=== PATIENT | female | born 1950 | race Caucasian/White ===

== ENCOUNTER 2021-09-28 08:36 | Outpatient (RCR) | payer MEDICARE, OTHER, SELFPAY ==
[2021-09-28] MEDS: ACETAMINOPHEN 325 MG TABLET 650 MG PO (09:14)
[2021-09-28] MEDS: diphenhydrAMINE HCl CAP 25 MG CAPSULE PO (09:14)
[2021-09-28] MEDS: FAMOTIDINE 20 MG TABLET PO (09:14)
[2021-09-28 09:17] VITALS: BP 145/77; PULSE 66; TEMP 36.4; O2SAT 100
[2021-09-28 10:44] VITALS: BP 151/69; PULSE 63; O2SAT 99
--- NOTE | 2021-09-28 11:57 | PC.NURSE ---
Patient had no medication list with her and is unsure of her medications.
== END 2021-09-28 16:00 ==
LOC: AMCINF 08:36
PROVIDERS: PCP Physician Assistant Medical; Referring Provider Physician Assistant Medical; Visit Provider Internal Medicine Hematology & Oncology
DX: U07.1 COVID-19 (principal); I10 Essential (primary) hypertension
CPT/HCPCS: A9270; M0247; Q0247

== ENCOUNTER 2023-07-10 08:19 | Outpatient (CLI) | payer MEDICARE, OTHER, SELFPAY ==
--- NOTE | ~2023-07-10 | MR_ITS ---
EXAMINATION: MR cervical spine wo con DATE: 07/10/2023 09:36 INDICATION: Bilateral upper extremity paresthesias. TECHNIQUE: Magnetic resonance imaging (MRI) of the cervical spine was performed without intravenous c ontrast. COMPARISON: None FINDINGS: Bone alignment is normal. Vertebral body heights are normal. There is severely decreased di sc height at C4-C5 and C5-C6. The spinal cord signal intensity is normal. There is a 1.8 cm nodule in left thyroid lobe. The following disc levels are specifically discussed: C2-C3: The disc does not extend beyond the endplate margin. There is no uncovertebral joint osteoarth ritis. There is moderate bilateral facet joint osteoarthritis. There is no neural foraminal stenosis. There is no central canal stenosis. C3-C4: The disc is bulging. There is no uncovertebral joint osteoarthritis. There is mild right and m oderate left facet joint osteoarthritis. There is no neural foraminal stenosis. There is mild central canal stenosis. C4-C5: The disc is bulging. There is severe right and moderate left uncovertebral joint osteoarthriti s. There is mild bilateral facet joint osteoarthritis. There is moderate right and mild left neural f oraminal stenosis. There is mild central canal stenosis. C5-C6: The disc is bulging. There is severe right and moderate left uncovertebral joint osteoarthriti s. There is mild bilateral facet joint osteoarthritis. There is moderate right and mild left neural f oraminal stenosis. There is mild central canal stenosis. C6-C7: There is a central extrusion. There is mild bilateral uncovertebral joint osteoarthritis. Ther e is mild bilateral facet joint osteoarthritis. There is no neural foraminal stenosis. There is mild central canal stenosis. C7-T1: There is a central extrusion. There is no uncovertebral joint osteoarthritis. There is moderat e right and severe left facet joint osteoarthritis. There is mild left neural foraminal stenosis. The re is mild central canal stenosis. IMPRESSION: 1. Severe cervical spondylosis. 2. Left thyroid nodule. Consider thyroid ultrasound for risk stratification. Reviewed, dictated and finalized at location A. ROOM ASSOCIATE
--- NOTE | ~2023-07-10 | MR_ITS ---
EXAMINATION: MR lumbar spine wo con DATE: 07/10/2023 09:36 INDICATION: Radiculopathy, lumbosacral region. Low back pain. Bilateral leg pain. TECHNIQUE: Magnetic resonance imaging (MRI) of the lumbar spine was performed without intravenous con trast. Sequences included sagittal T2-weighted FSE, sagittal T2-weighted FS FSE, sagittal T1-weighted FSE, and axial T2-weighted FSE. COMPARISON: None FINDINGS: There is 3 degrees dextrocurvature of thoracolumbar spine. There are chronic bilateral L5 p ars defects. There is 7 mm anterolisthesis of L5 on S1. There is mild chronic height loss of L5 verte bral body posteriorly. There is severely decreased disc height at L5-S1. The distal spinal cord signa l intensity is normal. The conus medullaris is at L2. The following disc levels are specifically disc ussed: L1-L2: The disc does not extend beyond the endplate margin. There is mild bilateral facet joint osteo arthritis. There is no neural foraminal stenosis. There is no central canal stenosis. L2-L3: There is mildly bulging. There is mild bilateral facet joint osteoarthritis. There is mild rupa ateral neural foraminal stenosis. There is no central canal stenosis. L3-L4: The disc is bulging. There is mild right and moderate left facet joint osteoarthritis. There i s mild bilateral neural foraminal stenosis. There is no central canal stenosis. L4-L5: The disc does not extend beyond the endplate margin. There is mild bilateral facet joint osteo arthritis. There is no neural foraminal stenosis. There is no central canal stenosis. L5-S1: The disc does not extend beyond the endplate margin. There is mild bilateral facet joint osteo arthritis. There is moderate right and mild left neural foraminal stenosis. There is mild central can al stenosis. IMPRESSION: 1. Chronic bilateral L5 pars defects with grade 1 anterolisthesis of L5 on S1. 2. Severe lower lumbar spondylosis. Reviewed, dictated and finalized at location A. BILITATION DIRECTOR
== END 2023-07-10 08:20 | disposition home or self-care (01) ==
LOC: ANHIMG 08:21
PROVIDERS: PCP Physician Assistant Medical; Visit Provider Anesthesiology Pain Medicine
DX: M43.02 Spondylolysis, cervical region (principal); E04.1 Nontoxic single thyroid nodule; M47.817 Spondylosis without myelopathy or radiculopathy, lumbosacral region; M43.06 Spondylolysis, lumbar region; M54.17 Radiculopathy, lumbosacral region; M47.812 Spondylosis without myelopathy or radiculopathy, cervical region; M48.02 Spinal stenosis, cervical region
CPT/HCPCS: 72141; 72148

== ENCOUNTER 2023-07-27 15:44 | Outpatient (CLI) | payer MEDICARE, OTHER, SELFPAY ==
--- NOTE | ~2023-07-27 | US_ITS ---
US thyroid INDICATION: Nontoxic thyroid nodule TECHNIQUE: Real-time sonographic images of the thyroid gland were obtained. COMPARISON: No prior studies for comparison. FINDINGS: The right thyroid lobe measures 4.5 x 1.7 x 2 cm. The left thyroid lobe measures 5 x 2 x 2 cm. In the right lobe there is an 8 mm slightly hypoechoic mixed solid and cystic mass which is wide r than tall, smoothly marginated without internal echogenic foci, TR 4. In the left lobe there is a h eterogeneous mixed solid and cystic mass which is hypoechoic, wider than tall with smooth margination and no internal echogenic foci measuring 2 x 1.6 x 1.6 cm, TR 4. IMPRESSION: 1. Left thyroid mass measuring 2 cm, TR 4. Ultrasound-guided fine-needle aspiration biopsy recommend ed. Reviewed, dictated and finalized at [facility] L. R FABRICATOR OPERATOR IMPRESSION: 1. Left thyroid mass measuring 2 cm, TR 4. Ultrasound-guided fine-needle aspir ation biopsy recommended.
== END 2023-07-27 15:45 | disposition home or self-care (01) ==
LOC: ANHIMG 15:46
PROVIDERS: PCP Physician Assistant Medical; Visit Provider Physician Assistant Medical
DX: E04.1 Nontoxic single thyroid nodule (principal)
CPT/HCPCS: 76536

== ENCOUNTER 2023-08-02 09:03 | Outpatient (CLI) | payer MEDICARE, OTHER, SELFPAY ==
--- NOTE | 2023-08-02 11:30 | NEURO_ITS ---
Impression: # Complains of tremors with numbness in all extremities. # Normal Nerve Conduction Study. # Normal needle/EMG exam without evidence of myotonia or denervation potentials. # Clinical correlation recommended. Nerve Conduction Studies Anti Sensory Summary Table Stim Site NR Peak (ms) P-T Amp (?V) Site1 Site2 Delta-P (ms) Dist (cm) Richard (m/s) Left Median Anti Sensory (2-3nd Digit) Wrist 3.7 56.0 Wrist 2-3nd Digit 3.7 14.0 38 Wrist 3.9 51.6 Wrist 2-3nd Digit 3.7 14.0 38 Right Median Anti Sensory (2-3nd Digit) Wrist 3.4 27.2 Wrist 2-3nd Digit 3.4 14.0 41 Wrist 3.2 22.7 Wrist 2-3nd Digit 3.4 14.0 41 Left Radial Anti Sensory (Base 1st Digit) Wrist 2.0 29.6 Wrist Base 1st Digit 2.0 0.0 Right Radial Anti Sensory (Base 1st Digit) Wrist 2.4 22.0 Wrist Base 1st Digit 2.4 0.0 Left Sup Fibular Anti Sensory (Ant Lat Mall) 14 cm 3.5 6.3 14 cm Ant Lat Mall 3.5 16.0 46 Right Sup Fibular Anti Sensory (Ant Lat Mall) 14 cm 3.4 5.9 14 cm Ant Lat Mall 3.4 16.0 47 Left Sural Anti Sensory (Lat Mall) Calf 3.3 10.5 Calf Lat Mall 3.3 16.0 48 Right Sural Anti Sensory (Lat Mall) Calf 3.4 12.2 Calf Lat Mall 3.4 16.0 47 Left Ulnar Anti Sensory (5th Digit) Wrist 2.6 47.1 Wrist 5th Digit 2.6 14.0 54 Right Ulnar Anti Sensory (5th Digit) Wrist 2.6 41.1 Wrist 5th Digit 2.6 14.0 54 Motor Summary Table Stim Site NR Onset (ms) O-P Amp (mV) Site1 Site2 Delta-0 (ms) Dist (cm) Richard (m/s) Left Median Motor (Abd Poll Brev) Wrist 3.6 4.6 Elbow Wrist 4.8 28.0 58 Elbow 8.4 4.0 Right Median Motor (Abd Poll Brev) Wrist 3.2 3.0 Elbow Wrist 5.2 28.0 54 Elbow 8.4 2.0 Left Peroneal Motor (Vastus Med) Ankle 4.5 2.3 Popit Ankle 8.4 40.0 48 Popit 12.9 2.1 Right Peroneal Motor (Vastus Med) Ankle 4.1 1.8 Popit Ankle 7.6 37.0 49 Popit 11.7 1.5 Left Tibial Motor (Abd Martin Brev) Ankle 4.8 8.0 Knee Ankle 9.0 41.0 46 Knee 13.8 8.9 Right Tibial Motor (Abd Martin Brev) Ankle 4.7 6.1 Knee Ankle 7.9 38.0 48 Knee 12.6 4.0 Left Ulnar Motor (Abd Dig Minimi) Wrist 2.6 7.2 A Elbow Wrist 5.1 29.0 57 A Elbow 7.7 6.4 Right Ulnar Motor (Abd Dig Minimi) Wrist 3.1 7.1 A Elbow Wrist 5.4 30.0 56 A Elbow 8.5 5.1 F Wave Studies NR F-Lat (ms) L-R F-Lat (ms) Left Median (Mrkrs) (Abd Poll Brev) 28.07 0.00 Right Median (Mrkrs) (Abd Poll Brev) 28.07 0.00 Left Peroneal (Mrkrs) (EDB) 51.48 0.93 Right Peroneal (Mrkrs) (EDB) 52.41 0.93 Left Tibial (Mrkrs) (Abd Hallucis) 52.34 0.16 Right Tibial (Mrkrs) (Abd Hallucis) 52.50 0.16 Left Ulnar (Mrkrs) (Abd Dig Min) 28.56 0.28 Right Ulnar (Mrkrs) (Abd Dig Min) 28.28 0.28 EMG Side Muscle Nerve Root Ins Act Fibs Amp Dur Recrt Comment Right 1stDorInt Ulnar C8-T1 Nml Nml Nml Nml Nml Right Ext Indicis Radial (Post Int) C7-8 Nml Nml Nml Nml Nml Right Ext Digitorum Radial (Post Int) C7-8 Nml Nml Nml Nml Nml Right BrachioRad Radial C5-6 Nml Nml Nml Nml Nml Right PronatorTeres Median C6-7 Nml Nml Nml Nml Nml Right Abd Poll Brev Median C8-T1 Nml Nml Nml Nml Nml Right AntTibialis Dp Br Fibular L4-5 Nml Nml Nml Nml Nml Right Gastroc T
== END 2023-08-02 09:04 | disposition home or self-care (01) ==
LOC: ANHNEURO 09:04
PROVIDERS: PCP Physician Assistant Medical; Visit Provider Anesthesiology Pain Medicine
DX: G62.9 Polyneuropathy, unspecified (principal)
CPT/HCPCS: 95886; 95913

== ENCOUNTER 2024-06-19 10:19 | Outpatient (CLI) | payer MEDICARE, SELFPAY ==
--- NOTE | ~2024-06-19 | XR_ITS ---
XR cervical spine 4-5V Ordering provider: Greyson Joyce MD History: . cervicalgia, cervical spondylosis, limited rom . Comparison: None. FINDINGS: VERTEBRAL BODIES: Normal height and alignment. No visible fracture or subluxation. The dens is intact . Asymmetry around the odontoid is seen most likely positional. Mild Levoscoliosis. DISK SPACES: Narrowing of the disc C4-C5, C5-C6 and C6-C7. Narrowing of the foramina at the level of C5-C6 and C6-C7 PARASPINOUS SOFT TISSUES: No prevertebral soft tissue swelling. IMPRESSION: No acute osseous abnormality cervical spine. Multilevel degenerative disc disease and intervertebral foraminal narrowing. Reviewed, dictated and finalized at location A.
== END 2024-06-19 10:20 | disposition home or self-care (01) ==
PROVIDERS: PCP Physician Assistant Medical; Visit Provider Anesthesiology Pain Medicine
DX: M43.12 Spondylolisthesis, cervical region (principal); M48.02 Spinal stenosis, cervical region; M54.12 Radiculopathy, cervical region; G89.29 Other chronic pain; M50.30 Other cervical disc degeneration, unspecified cervical region
CPT/HCPCS: 72050

== ENCOUNTER 2024-07-03 07:50 | Day surgery (SDC) | payer MEDICARE, SELFPAY ==
[2024-06-27 09:39] VITALS: BMI 7555.5
--- NOTE | ~2024-07-03 | XR_ITS ---
INTRAOPERATIVE FLUOROSCOPY: CLINICAL HISTORY: 73 years old Female; MIDLINE C6-7 INTERLAMINAR EPIDURAL STEROID INJ PROCEDURE COMMENTS: Limited intraoperative fluoroscopy of the cervical spine was performed. CUMULATIVE DOSE: 0.6 mGy FLUOROSCOPY TIME: 9.9 seconds FINDINGS/IMPRESSION: Please refer to operative note for further details. Reviewed, dictated and finalized at location A. H EXAMINER HAND
[2024-07-03 08:40] VITALS: BP 147/85; PULSE 62; RESP 15; TEMP 36.8; O2SAT 97
--- NOTE | 2024-07-03 09:35 | WPDHPUPDATE1 ---
History and Physical Update Update Date/Time: 07/03/24 09:35 History and Physical has been reviewed, including an updated exam of the patient. There are NO changes in the patient's condition. Risks, benefits, and alternatives have been discussed and questions answered. Patient agrees to proceed with procedure.
--- NOTE | 2024-07-03 09:36 | P.OP_ITS ---
Procedure Note - Detailed Date of Procedure 07/03/24 Pre-op Diagnosis Cervical Radiculopathy Post-op Diagnosis Same Procedure Performed Midline Cervical Interlaminar Epidural Steroid Injection at C6-7 under Fluoroscopic Guidance and with Contrast Control. Surgeon Greyson Joyce MD Anesthesia Local Description of Procedure INFORMED CONSENT: Risks, benefits and alternatives to the procedure were discussed in detail with the patient who expressed explicit understanding and consent to proceed. Patient was informed verbally and in written form regarding the risks associated with the procedure including the low risk of serious infection, bleeding/bruising, allergic reaction, nerve or organ injury, paralysis, procedural site pain or discomfort, worsening pain and/or mobility, failure to treat and/or disfigurement. The patient expressed explicit understanding and consent to proceed. All materials required for the procedure were available prior to procedure start. Site and side was marked prior to procedure and confirmed in the presence of the patient. PROCEDURE IN DETAIL: The patient was brought to the procedural suite and placed in the prone position. Patient's head was positioned and stabilized with a ProneView pillow or equivalent. Patient was made comfortable with use of pillows under the chest, hips and ankles. Skin overlying the injection site was prepared broadly with ChloraPrep applicator and draped in a sterile manner. Aseptic technique was employed throughout. The endplates of the vertebral body at the site of interest were aligned in the AP view. Slight caudad tilt and ipsilateral oblique angulation was utilized to optimize visualization of the targeted posterior intervertebral foramen at C6-7. Local anesthesia was established by infiltration with approximately 5 mL of 2% lidocaine via a 1-1/2 inch 27-gauge needle. A 20-gauge 4-inch Tuohy epidural needle was advanced intermittently until appropriate loss of resistance to air was identified via plastic loss of resistance syringe. Lateral view was used to confirm the appropriate positioning of the needle tip within the posterior epidural space. In the AP view, 2.0 mL of Omnipaque 300 contrast medium was injected after negative aspiration for CSF, blood or other bodily fluid, showing appropriate epidural spread of contrast without evidence of intravascular or intrathecal placement. After negative repeat aspiration for CSF, blood or other bodily fluid, A 4 mL solution containing 6 mg of betamethasone in sterile PF Normal Saline was injected after negative repeat aspiration. Appropriate spread of the injectate was confirmed with washout of previously injected contrast. No par asthesias were elicited. Needle was removed completely intact without difficulty. Images were saved and documented in the patient chart. Patient's skin was cleansed and sterile bandage applied. The patient tolerated the procedure well. The patient was transported to the recovery area in stable condition where they were observed for an appropriate amount of time prior to discharge, without evidence of complication. The patient was instructed to avoid excessive activity for the next 48 hours, including overhead work, reaching or extended device/computer usage. Showers only for 48 hours. They were instructed not to drive or operate heavy machinery for 24 hours. They are to monitor for severe headaches, fevers, chills, night sweats, erythema/swelling at the site or any other signs of infection, bleeding/bruising, bowel or bladder changes as well as new pain, weakness or numbness in the upper or lower extremity. Should they notice these changes, they are instructed to call our office immediately or report directly to the nearest Emergency Department if no answer or if after posted office hours. CONTRAST WASTED: 28mL Omnipaque 300. Complications No immediate complications Condition Stable Disposition Same day [facility] Billing Surgery - Charge Forward: Surgery Billing
[2024-07-03 09:50] VITALS: BP 177/88; PULSE 59; RESP 8; O2SAT 96
[2024-07-03 09:55] VITALS: BP 174/89; PULSE 57; RESP 12; O2SAT 96
[2024-07-03] MEDS: BETAMETHASONE SODIUM PHOSPHATE PF INJ 6 MG/ML VIAL INFILTRATE (09:57)
[2024-07-03] MEDS: LIDOCAINE HCL 1% PF INJ 5 ML VIAL 1 ML INFILTRATE (09:58)
[2024-07-03 10:02] VITALS: BP 180/81; PULSE 58; RESP 16; O2SAT 100
== END 2024-07-03 10:15 | disposition home or self-care (01) ==
PROVIDERS: PCP Physician Assistant Medical; Visit Provider Anesthesiology Pain Medicine
PROC: (CPT 62321; principal; 2024-07-03 09:45)
DX: M54.12 Radiculopathy, cervical region (principal)
CPT/HCPCS: 62321; 99199

== ENCOUNTER 2024-07-19 07:43 | Outpatient (CLI) | payer MEDICARE, SELFPAY ==
--- NOTE | ~2024-07-19 | DEXA_ITS ---
Bone Density Report Name: BREDNAN CANO Age: 73 Sex: Female Ethnicity: White Date of : 1950 Indication: postmenopausal; screening for osteoporosis; height loss; Referring Provider: MANUEL FALK Study: Bone densitometry was performed. Exam Date: July 19, 2024 Accession number: [id number] Bone Density: Region BMD T-score Z-score Classification AP Spine(L1-L4) 0.779 -2.4 0.0 Osteopenia Femoral Neck (Left) 0.567 -2.5 -0.4 Osteoporosis Total Hip (Left) 0.735 -1.7 0.1 Osteopenia Femoral Neck (Right) 0.613 -2.1 0.0 Osteopenia Total Hip (Right) 0.708 -1.9 -0.1 Osteopenia Total Hip Mean 0.722 -1.8 0.0 Osteopenia World Health Organization criteria for BMD impression classify patients as: Normal (T-score at or above -1.0), Osteopenia (T-score between -1.0 and -2.5), or Osteoporosis (T-score at or below -2.5). 10-year Fracture Risk: FRAX not reported because: Some T-score for Spine Total or Hip Total or Femoral Neck at or below -2.5 Clinical Information Provided by Patient: Has used the following medications: Vitamin D, Calcium Patient maximum height was 66 Menopause Age: 58 No regular weight bearing exercise Drinks caffeinated beverages Onset of menses at age 10 Number of children 2 Impression: The patient has osteoporosis, based on the Left Femoral Neck T-score. Discussion: INCREASED RISK OF FRACTURE. BONE DENSITY IS UNDESIRABLY LOW AT ONE OR MORE SKELETAL SITES, CONSISTENT WITH POSTMENOPAUSAL OSTEOPOROSIS. This patient's lowest T-score meets the World Health Organization's (WHO) criteria for osteoporosis at one or more sites (T-score -2.5 or below). In untreated patients, the risk of osteoporotic fracture increases approximately two-fold for each 1.0 SD decrease in T-score. Low bone density is not the only risk factor for fracture; also consider factors such as patient's age, frailty or poor health, risk of falling, risk of injury, previous osteoporotic fracture, family history of osteoporosis, cigarette smoking, low body weight, etc. Not everyone with low bone mineral density has osteoporosis; osteomalacia and other metabolic bone disorders should also be considered. Patients who have osteoporosis should be evaluated for specific diseases and conditions (secondary causes) that may cause or contribute to bone loss. The [place] Association of Clinical Endocrinologists (AACE) and National Osteoporosis Foundation (NOF) recommend pharmacologic intervention for all postmenopausal women whose T-score is in this range. The patient should follow a healthful lifestyle (good nutrition with adequate calcium and vitamin D, and appropriate weight-bearing exercise). Follow-Up: Consider a repeat BMD and Vertebral Fracture Assessment (VFA) exam in 2 years or sooner if medically necessary, to reassess this patient's status. Reported by: MARILU on 07/19/2024 8:13:00 AM. Reviewed, dictated and finalized at location A. [facility]ITAL[facility]
== END 2024-07-19 07:44 | disposition home or self-care (01) ==
PROVIDERS: PCP Physician Assistant Medical; Visit Provider Physician Assistant Medical
DX: E28.39 Other primary ovarian failure (principal); M85.89 Other specified disorders of bone density and structure, multiple sites; M81.0 Age-related osteoporosis without current pathological fracture; E21.3 Hyperparathyroidism, unspecified; I10 Essential (primary) hypertension; E04.1 Nontoxic single thyroid nodule; R79.89 Other specified abnormal findings of blood chemistry; Z13.820 Encounter for screening for osteoporosis
CPT/HCPCS: 77080

== ENCOUNTER 2025-04-06 15:03 | Emergency (ER) | payer MEDICARE, SELFPAY ==
--- NOTE | ~2025-04-06 | XR_ITS ---
EXAM: XR foot LT min 3V DATE: 04/06/2025 15:31 HISTORY: dropped ipad on foot on 1st MTP joint area . COMPARISON: None available. FINDINGS: Normal mineralization. No fracture or dislocation. No lytic or blastic lesion. Severe dege nerative change at the first MTP joint. Widening of the first MTP joint and the lateral view. Mild Ac hilles and moderate plantar enthesopathy. Mild scattered degenerative changes in the toes and midfoot . No erosion or periosteal change. Soft tissues within normal limits. IMPRESSION: First MTP joint widening, seen only in the lateral view, may be secondary to degenerative change or traumatic subluxation. Reviewed, dictated and finalized at location K. IMPRESSION: First MTP joint widening, seen only in the lateral view, may be sec ondary to degenerative change or traumatic subluxation.
--- OUTSIDE RECORDS SUMMARY | 2025-04-06 15:06 | XMS_ITS | Encounter Summary ---
Author Organization [facility] Address [facility] [place] [address] Care Team Providers [employer] International Guest Coordinator Name Role Phone Christie Stapleton PA-C Primary Care Provider [phone]- [phone] Encounter Details Date Type Department Care Team (Late st Contact Info) Description 05/07/2024 [place] [employer] [employer] Message Enc [facility] - [facility] [address] [facility], [address] [place] [id number] [place], [facility] Provider Question Social History Tobacco Use Types Packs/Day Years Used Date Smoking Tobacco: Never Smokeless Tobacco: Never Alcohol Use Standard Drinks/Week Comments No 0 (1 standard drink = 0.6 oz pur e alcohol) AUDIT-C Answer Date Recorded Frequency of Alcohol Consumption Never 10/17/2018 Average Number of Drinks Not on file 019 Frequency of Binge Drinking Not on file 09/29 PHQ-2 Answer Date Recorded Patient Health Questionnaire-2 Score 0 04/23/2024 Comments No Sex and Gender Information Value Date Recorded Sex Assigned at Female 09/12/2024 8:00 AM FRAME ALIGNER Legal Sex Female 6:03 PM CDT Gender Identity Female 10/30/2021 3:21 PM FRAME ALIGNER Sexual Orientation Not on file 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 Washburn- Please check with her if she would like to do some physical therapy? The other option is to see a pain specialist as well. Please check with her on both. If she is interested in doing physical therapy, please check where she would like to do it documented in this encounter Plan of Treatment Not on file documented as of this encounter Visit Diagnoses Not on filedocumented in this encounter Additional Health Concerns Assessment Noted Time PHQ-9 Depression Total Score: 0 10/06/19 22 10:18 AM FRAME ALIGNER documented as of this encounter Care Teams International Guest Coordinator Relationship Specialty Start Date End Date Christie Stapleton PA-C PCP - General NURSE PRACTITIONER 12/06/18 documented as of this encounter
--- OUTSIDE RECORDS SUMMARY | 2025-04-06 15:06 | XMS_ITS | Encounter Summary ---
Author Organization [facility] Address [facility] [place] [address] Care Team Providers Care Reservations And Ticketing Agent Name Role Phone Christie Stapleton PA-C Primary Care Provider [phone]- [phone] Encounter Details Date Type Department Care Team (Late st Contact Info) Description 06/12/2021 Therapy Plan [facility] [address] [place], [place] [id number] Christie Stapleton PA-C [facility] [place] [address] Social History Tobacco Use Types Packs/Day Years Used Date Smoking Tobacco: Never Smokeless Tobacco: Never Alcohol Use Standard Drinks/Week Comments No 0 (1 standard drink = 0.6 oz pur e alcohol) AUDIT-C Answer Date Recorded Frequency of Alcohol Consumption Never 10/17/2018 Average Number of Drinks Not on file 019 Frequency of Binge Drinking Not on file 09/29 Comments No Sex and Gender Information Value Date Recorded Sex Assigned at Female 09/12/2024 8:00 AM HITTING COACH Legal Sex Female 6:03 PM CDT Gender Identity Female 10/30/2021 3:21 PM HITTING COACH Sexual Orientation Not on file Occupation Industry Job Start Date Job End Date [place] [employer] Not on file Not on file Not on file COVID-19 Exposure Response Date Recorded In the last month, have you been in contact with someone who was confirmed or suspected to have Coronavirus / COVID-19? No / Unsure 05/29/2021 10:00 AM CDT documented as of this encounter Plan of Treatment Not on file documented as of this encounter Visit Diagnoses Diagnosis Senile osteoporosis- Primary documented in this encounter Care Teams Reservations And Ticketing Agent Relationship Specialty Start Date End Date Christie Stapleton PA-C PCP - General NURSE PRACTITIONER 12/06/18 documented as of this encounter
--- OUTSIDE RECORDS SUMMARY | 2025-04-06 15:06 | XMS_ITS | Clinical Summary ---
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 TEACHER Gender Identity Not on file Sexual Orientation Not on file Obstetrics History Para Term AB IAB SAB Ectopic Multiple Livin g Live Births 2 Date Outcome GA Total Labor Labor/2nd/3rd Weight Sex Type Anes PTL Charlotte A1 A5 Name Clin Plan of Treatment Health Maintenance Due Date Last Done Comments Depression Screening 1950 Fall Risk Assessment 1950 Hepatitis C Screening 1950 DTaP/Tdap/Td Vaccine (1 - Tdap) 1959 Hepatitis B Screening 1966 Zoster Vaccine (1 of 2) 1998 Well Visit 65+ 2013 Pneumococcal vaccine 65+ (2 of 2 - PPSV23) 07/01/2021 07/01/2020 Covid-19 Vaccine (3 - 2023-2 5 season) 2024 11/07/2020, 10/10/2020 Osteoporosis Screening-Bone Density Scan 06/22/2024 06/22/2022 Influenza Vaccine (#1) 2025 06/26/2020 Breast Cancer Screening-Mammogram Discontinued 09/14/2024, 07/05/2023, 06/14/2022, Additional history exists Procedures Procedure Name Priority Date/Time Associated Diagnosis Comments SCREENING MAMMOGRAM BILATERAL W BESS Schedule Routine, Read Routine (OP Routine) 09/14/2024 1:07 PM CRYPTOGRAPHY TEACHER Screening mammogram, encounter for from Last 3 Months or Most Recently Relevant to Health Maintenance Results * Screening Mammogram Bilateral W Bess (09/14/2024 1:07 PM CRYPTOGRAPHY TEACHER) Anatomical Region Laterality Modality Breast Bilateral Mammography Impressions 09/14/2024 1:35 PM CRYPTOGRAPHY TEACHER BI-RADS ATLAS category (overall): 1 - Negative There is no mammographic evidence of malignancy. A 1 year screening mammogram is recommended. The patient has been or will be contacted. We recommend annual screening mammography for women at average risk of breast cancer beginning at age 40, based on guidelines of the [employer] [employer] (ACR Practice Parameter for the Performance of Screening and Diagnostic Mammography) and [place] [employer]. For women with and elevated risk of breast cancer, please refer to the ACR Practice Parameter for specific screening recommendations. The patient will be entered into a reminder system with a target due date of 1 year for her next screening exam. Narrative 09/14/2024 1:35 PM CRYPTOGRAPHY TEACHER Screening Mammogram Bilateral W Bess: 09/14/24 The study was acquired using full field digital technology and interpreted from soft copy. 2D digital mammographic views, as well as 3D digital tomosynthesis were performed in the CC and MLO projections. This study was resulted using Computer-Aided Detection (CAD). CLINICAL: Screening mammogram, encounter for. No relevant medical history has been documented for this patient. No known family history of breast cancer. COMPARISONS: 07/05/2023 Screening Mammogram Bilateral W Bess 06/14/2022 Screening Mammogram Bilateral W Bess 03/24/2021 Screening Mammogram Bilateral W Bess BREAST TISSUE: There are scattered areas of fibroglandular density. FINDINGS: No suspicious masses, suspicious calcifications, or other suspicious findings are seen within either breast. There has been no suspicious change. us Self Screening Mammogram IMG MAMMO PROCEDURES Fi nal Result from Last 3 Months or Most Recently Relevant to Health Maintenance Insurance [facility] [address] Care Teams Stick Feeder Relationship Specialty Start Date End Date Christie Stapleton PA [facility] [place] [address] PCP - General Family Practice 06/14/22
--- OUTSIDE RECORDS SUMMARY | 2025-04-06 15:06 | XMS_ITS | Encounter Summary ---
Author Organization [facility] Address [address] [place] [address] Care Team Providers Care Cytologist Name Role Phone Christie Stapleton Primary Care Provider [phone] Encounter Details Date Type Department Care Team (Late st Contact Info) Description 12/13/2024 Lab Requisition [facility] - Derm[facility] Lab [address] [place] [address] Janelle Bojorquez DO [address] [facility] [address] [place] [address] Social History Tobacco Use Types Packs/Day Years Used Date Smoking Tobacco: Never Smokeless Tobacco: Never Alcohol Use Standard Drinks/Week Comments Not Currently 0 (1 standard drink = 0.6 oz pur e alcohol) Comments Unknown Sex and Gender Information Value Date Recorded Sex Assigned at Not on file Legal Sex Female 9:16 AM CDT Gender Identity Female 05/28/2024 9:16 AM CDT Sexual Orientation Not on file documented as of this encounter Plan of Treatment Upcoming Encounters Date Type Department Care Team (Late st Contact Info) Description 04/25/2025 1:40 PM CDT Office Visit [facility] - Endocrinology [address] [place] [address] Tawnya Mclean MD [address] [place] [address] [address] [place] [address] 07/29/2025 1:00 PM MILL MANAGER Office Visit [facility] - Endocrinology [address] [place] [address], [place] [address] Yousuf Irwin MD [address] [place] [address] [address] [address] documented as of this encounter Procedures Procedure Name Priority Date/Time Associated Diagnosis Comments DERMATOPATHOLOGY Routine 12/12/2024 12:0 0 AM CDT documented in this encounter Results * DERMATOPATHOLOGY (12/12/2024 12:00 AM CDT) Case Report Dermatopathology Report Case: [id number] Authorizing Provider: Janelle Bojorquez DO Collected: 12/12/2024 12:00 AM Ordering Location: [facility] Physician [facility] - Received: 12/14/2024 06:27 AM DermPath Lab Pathologist: Melanie Collins MD Specimen: Skin, left upper back 5:27 PM CDT DERMATOPATHOLOGY LABORATORY Final Diagnosis Specimen A. SKIN, left upper back: JUNCTIONAL MELANOCYTIC PROLIFERATION; PRESENT AT MARGIN (D48.5) (see microscopic description and comment) 5:27 PM CDT DERMATOPATHOLOGY LABORATORY at 1725 CDT Clinical History LENTIGO R/O ATYPIA 5:27 PM CDT DERMATOPATHOLOGY LABORATORY Gross Description Specimen A: Received is one formalin filled container labeled with the patient's name and designated left upper back. The specimen consists of a shave biopsy measuring 8x8x1 mm. Jar 0. 5:27 PM CDT DERMATOPATHOLOGY LABORATORY Microscopic Description Specimen A. SKIN, left upper back: Sections show a junctional melanocytic proliferation. There is a lentiginous proliferation of melanocytes between irregular nests. Scattered melanocytes show evidence of upward migration within the epidermis. The melanocytes are highlighted by MART-1/Melan-A. PRAME is negative within the melanocytes. This lesion is present at the margin of the specimen. COMMENT: Because this lesion is present at the margin of the specimen, symmetry and circumscription cannot be evaluated. Therefore, a complete but conservative re-excision is recommended to evaluate this lesion in its entirety. This case was shared with Dr. Noris Tejada who agrees. 5 5:27 PM CDT DERMATOPATHOLOGY LABORATORY Disclaimer An external and internal positive and negative controls are appropriate for the histochemical, immunohistochemical and immunofluorescence stain(s) in this case (if any), except where stated explicitly. The performance characteristics of the stain(s) cited in this report were developed and its performance characteristic determined by the Dermatopathology Laboratory at [facility], directed by Dr. Joanie Merida. These tests need not be, and therefore are not, approved by the [place] Food and Drug Administration. The tests are used for clinical purposes. Billing Codes Specimen Charges Stain Charges 05041 1 [id number] [id number] 1 1 5 5:27 PM CDT DERMATOPATHOLOGY LABORATORY Embedded Images 5 5:27 PM CDT DERMATOPATHOLOGY LABORATORY Pathology/Cytolog y TISSUE SPECIMEN FROM SKIN / Unknown 12/12/2024 12/14/2024 6:27 AM CDT Janelle Bojorquez DO LAB - PATHOLOGY/CYTOLOGY ORDERABLES Final Result DERMATOPATHOLOGY LABORATORY [facility] - Department of Dermatology [address], [address] [phone] documented in this encounter Visit Diagnoses Not on filedocumented in this encounter Care Teams Cytologist Relationship Specialty Start Date End Date Christie Stapleton PA [address] [place] [address] PCP - General Physician Sueding Machine Tender 10/25/24 documented as of this encounter
--- OUTSIDE RECORDS SUMMARY | 2025-04-06 15:06 | XMS_ITS | Encounter Summary ---
Author Organization [facility] Address [facility] [place] [address] Care Team Providers Care Resolution Agent Name Role Phone Christie Stapleton PA-C Primary Care Provider [phone] Encounter Details Date Type Department Care Team (Late st Contact Info) Description 01/13/[address] [facility] One Day Services [address] [place], [place] [id number] [place] [id number] [address] Social History Tobacco Use Types Packs/Day Years [...] Date Recorded Patient Health Questionnaire-2 Score 0 12/01/2022 Comments No Sex and Gender Information Value Date Recorded Sex Assigned at Female 09/12/2024 8:00 AM FLYING SQUAD WORKER Legal Sex Female 6:03 PM CDT Gender Identity Female 10/30/2021 3:21 PM FLYING SQUAD WORKER Sexual Orientation Not on file Occupation Industry Job Start Date Job End Date [place] at [employer] Not on file Not on file Not on file COVID-19 Exposure Response Date Recorded In the last 10 days, have yo u been in contact with someone who was confirmed or suspected to have Coronavirus/COVID-19? No / Unsure 01/13/2023 10:50 AM CDT documented as of this encounter Plan of Treatment Not on file documented as of this encounter Visit Diagnoses Diagnosis Senile osteoporosis- Primary documented in this encounter Additional Health Concerns Assessment Noted Time PHQ-9 Depression Total Score: 0 10/06/19 22 10:18 AM FLYING SQUAD WORKER documented as of this encounter Care Teams Resolution Agent Relationship Specialty Start Date End Date Christie Stapleton PA-C PCP - General NURSE PRACTITIONER 12/06/18 documented as of this encounter
--- OUTSIDE RECORDS SUMMARY | 2025-04-06 15:06 | XMS_ITS | Encounter Summary ---
Author Organization [facility] Address [facility] [place] [address] Care Team Providers Care Compliance Representative Name Role Phone Christie Stapleton PA-C Primary Care Provider [phone] Encounter Details Date Type Department Care Team (Late st Contact Info) Description 05/29/2021 Hospital Orders Only [facility] Cardiopulmonary Services [address] [place], [place] [id number] Yohan Oviedo MD [address] [address] Social History Tobacco Use Types Packs/Day Years [...] Sex Assigned at Female 09/12/2024 8:00 AM PET CARE ASSISTANT Legal Sex Female 6:03 PM CDT Gender Identity Female 10/30/2021 3:21 PM PET CARE ASSISTANT Sexual Orientation Not on file 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
--- OUTSIDE RECORDS SUMMARY | 2025-04-06 15:06 | XMS_ITS | Encounter Summary ---
Author Organization [facility] Address [facility] [place] [address] Care Team Providers Care Rubber Liner Name Role Phone Christie Stapleton PA-C Primary Care Provider [phone] Encounter Details Date Type Department Care Team (Late st Contact Info) Description 05/19/2021 [facility] [address] Zev Osorio MA Social History Tobacco Use Types Packs/Day Years [...] Sex Assigned at Female 09/12/2024 8:00 AM CINDER CRUSHER OPERATOR Legal Sex Female 6:03 PM CDT Gender Identity Female 10/30/2021 3:21 PM CINDER CRUSHER OPERATOR Sexual Orientation Not on file Occupation Industry Job Start Date Job End Date [place] at [employer] Not on file Not on file Not on file COVID-19 Exposure Response Date Recorded In the last month, have you been in contact with someone who was confirmed or suspected to have Coronavirus / COVID-19? Unable to assess 05/15/2021 10:32 AM CDT documented as of this encounter Plan of Treatment Not on file documented as of this encounter Procedures Procedure Name Priority Date/Time Associated Diagnosis Comments COMPREHENSIVE METABOLIC PANEL Routine 06/11/2021 VITAMIN D, 25 OH Routine 06/11/2021 CBC (OUTSIDE LAB) Routine 08/05/2020 COMPREHENSIVE METABOLIC PANEL Routine 08/05/2020 LIPID PANEL Routine 08/05/2020 documented in this encounter Results * VITAMIN D, 25 OH (06/11/2021) VITAMIN D 25 HYDROXY S/P/B 73 06/11/2021 epicurio Doc [facility] Abstract LABORATORY Final Result * (ABNORMAL) COMPREHENSIVE METABOLIC PANEL (06/11/2021) SODIUM S/P/B 144 POTASSIUM S/P/B 5.3 CO2 29 CHLORIDE S/P/B 106 GLUCOSE 80 mg/dL CALCIUM S/P/B 10.5 BUN 20 CREATININE S/P/B 1.07(A) 0.5 - 1.0 EGFR AFR. AMER. 60 <=90 EGFR NON-AFR. AMER. 52 <=90 ALKALINE PHOSPHATASE S/P/B 53 ALT 11 AST 17 BILIRUBIN TOTAL S/P/B 0.3 ALBUMIN S/P/B 4.2 3.5 - 5.0 TOTAL PROTEIN S/P/B 6.7 GLOBULIN 2.5 06/11/2021 us Doc [facility] Abstract LABORATORY Final Result * COMPREHENSIVE METABOLIC PANEL (08/05/2020) SODIUM S/P/B 144 POTASSIUM S/P/B 4.4 CO2 28 CHLORIDE S/P/B 109 GLUCOSE 90 mg/dL CALCIUM S/P/B 10.1 BUN 16 CREATININE S/P/B 0.88 0.5 - 1.0 EGFR AFR. AMER. 76 <=90 EGFR NON-AFR. AMER. 66 <=90 ALKALINE PHOSPHATASE S/P/B 67 ALT 10 AST 15 BILIRUBIN TOTAL S/P/B 0.5 ALBUMIN S/P/B 4.2 3.5 - 5.0 TOTAL PROTEIN S/P/B 6.5 08/05/2020 us Doc [facility] Abstract LABORATORY Final Result * CBC (OUTSIDE LAB) (08/05/2020) WBC 4.1 HGB 13.4 HCT 42.6 PLT 201 08/05/2020 us Doc [facility] Abstract LAB-OUTSIDE/ABSTRACTED Final Result * LIPID PANEL (08/05/2020) Pathologist [facility] CHOLESTEROL 194 HDL 69 TRIGLYCERIDES 59 NON HDL CHOLESTEROL 125 LDL (CALCULATED) 111 08/05/2020 us Doc [facility] LAB[facility]AT[facility] Final Result documented in this encounter Visit Diagnoses Not on filedocumented in this encounter Care Teams Rubber Liner Relationship Specialty Start Date End Date Christie Stpaleton PA-C PCP - General NURSE PRACTITIONER 12/06/18 documented as of this encounter
--- OUTSIDE RECORDS SUMMARY | 2025-04-06 15:06 | XMS_ITS | Encounter Summary ---
Author Organization [facility] Address [facility] [place] [address] Care Team Providers Care Rigger Name Role Phone Christie Stapleton PA-C Primary Care Provider [phone]- [phone] Encounter Details Date Type Department Care Team (Late st Contact Info) Description 06/11/2024 Therapy Plan [facility] Multispecialty Care - [facility] [address] [facility], [address] [place] [address] Jaret Guerra MD [address] [place], [place] [id number] Social History Tobacco Use Types Packs/Day Years [...] Sex Assigned at Female 09/12/2024 8:00 AM TOBACCO WRAPPING MACHINE TENDER Legal Sex Female 6:03 PM CDT Gender Identity Female 10/30/2021 3:21 PM TOBACCO WRAPPING MACHINE TENDER Sexual Orientation Not on file Occupation Industry Job Start Date Job End Date [place] [employer] Not on file Not on file Not on file documented as of this encounter Plan of Treatment Not on file documented as of this encounter Visit Diagnoses Not on filedocumented in this encounter Additional Health Concerns Assessment Noted Time PHQ-9 Depression Total Score: 0 10/06/19 22 10:18 AM TOBACCO WRAPPING MACHINE TENDER documented as of this encounter Care Teams Rigger Relationship Specialty Start Date End Date Christie Stapleton PA-C PCP - General NURSE PRACTITIONER 12/06/18 documented as of this encounter
--- OUTSIDE RECORDS SUMMARY | 2025-04-06 15:06 | XMS_ITS | Clinical Summary ---
Author Organization [facility] Address [address] [place] [address] Care Team Providers Care Park Recreation Manager Name Role Phone Christie Stapleton PA-C Primary Care Provider +1- [phone] Allergies No known active allergies Medications multi vitamin/mineral s tablet Take 1 tablet by mouth daily. Active Turmeric 500 MG Cap Take by mouth daily. Active vitamin C 1000 MG tablet Take 1 tablet (1,000 mg total) by mouth daily. Active Coenzyme Q10 (CO Q10) 100 MG Cap Active gabapentin (NEURONTIN) 300 MG capsule Take 2 capsules (600 mg total) by mouth 2 (two) times daily. 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 Her LDL is 111. Depending on stress test results, could consider statin therapy. Facet arthropathy, cervical 03/14/2019 Cervical radiculopathy 10/17/2018 Resolved Problems Problem Noted Date Diagnosed Date Resolved Date Precordial chest pain 05/15/20212023 Assessment & Plan (06/26/2021 8:00 AM CDT): Atypical in nature with stress echo completed that revealed low risk for cardiovascular event No further workup at this time Assessment & Plan (05/15/2021 10:15 AM CDT): Her chest pain sounds atypical. However given her age, she is at risk for coronary artery disease. I recommended that she get a stress echocardiogram. If that is negative, would recommend evaluating for potential pill esophagitis secondary to alendronate versus gastroesophageal reflux disease. Essential (primary) hypertension 05/15/2021 11/30/2023 Assessment & Plan (06/26/2021 8:00 AM CDT): Blood pressure is well controlled with no changes in regimen at this time Encouraged to continue to monitor at home and log and call office with any concerns in future. Assessment & Plan (05/15/2021 10:16 AM CDT): Blood pressure is elevated in the office today. Continue lisinopril. Immunizations Immunization Administration Dates Next Due Fluzone High Dose - >Age 65 (Prefilled Syringe) 06/26/2020 MODERNA COVID-19 (12+) MRNA, LNP-S, PF, 100 MCG/ 0.5 ML DOSE 11/07/2020,10/10/2020 Pneumococcal (Prevnar 13) 07/01/2020 Family History Medical History Relation Comments Parkinson's Disease Father leukemia Father Breast Cancer Sister Relation Status Comments Father Sister Social History Tobacco Use Types Packs/Day Years Used Date Smoking Tobacco: Never Smokeless Tobacco: Never Tobacco Cessation:Counseling Given: Yes Alcohol Use Standard Drinks/Week Comments No 0 (1 standard drink = 0.6 oz pur e alcohol) AUDIT-C Answer Date Recorded Frequency of Alcohol Consumption Never 10/17/2018 Average Number of Drinks Not on file 019 Frequency of Binge Drinking Not on file 09/29 PHQ-2 Answer Date Recorded Patient Health Questionnaire-2 Score 0 09/12/2024 Comments No Sex and Gender Information Value Date Recorded Sex Assigned at Female 09/12/2024 8:[address]SULTANT Legal Sex Female 6:03 PM CDT Gender Identity Female 10/30/2021 3:[address]SULTANT Sexual Orientation Not on file Occupation Industry Job Start Date Job End Date 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[employer] Not on file Not on file Not on file Last Filed Vital Signs Vital Sign Reading Time Taken Comments Blood Pressure 128/76 09/12/2024 10:[address] CONSULTANT Pulse 60 09/12/2024 9:[address] CONSULTANT Temperature 36.7 C (98.1 F) 09/12/2024 9:[address] CONSULTANT Respiratory Rate 14 09/12/2024 9:[address] CONSULTANT Oxygen Saturation 97% 09/12/2024 9:[address] CONSULTANT Inhaled Oxygen Concentration - - Weight 78.9 kg (174 lb) 09/12/2024 9:[address] CONSULTANT Height 167.6 cm (5' 6) 09/12/2024 9:[address] CONSULTANT Body Mass Index 28.08 09/12/2024 9:[address]SULT[address] Plan of Treatment Health Maintenance Due Date Last Done Comments Hepatitis C 1966 DTaP, Tdap and Td Vaccines ( 1 - Tdap) 1967 Zoster Vaccines (1 of 2) 1998 Annual Medicare Wellness Visit 2013 Pneumococcal Vaccine: 50+ Years (2 of 2 - PPSV23) 07/01/2021 07/01/2020 RSV Immunization or 60+ Years (1 - 1-dose 75+ series) 2023 COVID-19 Vaccine (3 - 2023-2 5 season) 2024 11/07/2020, 10/10/2020 Dexa Scan (General) Completed 06/22/2022, 06/18/2020 PHQ-2 (Physician [place]) Completed 09/12/2024 Meningococcal B Vaccine Aged Out No l onger eligible based on patient's age to complete this topic Meningococcal Vaccine Aged Out No bob jazmine eligible based on patient's age to complete this topic RSV Immunizations Under 20 Months Aged Out No longer eligible b ased on patient's age to complete this topic Procedures Procedure Name Priority Date/Time Associated Diagnosis Comments BONE DENSITY/DEXA Routine 06/22/2022 3:2 8 PM CDT Senile osteoporosis from Last 3 Months or Most Recently Relevant to Health Maintenance Results * BONE DENSITY/DEXA (06/22/2022 3:28 PM CDT) Anatomical Region Laterality Modality Bone Bone Density 06/22/2022 3:21 PM CDT Narrative 06/22/2022 3:24 PM CDT IMAGING STUDIES: BONE DENSITY/DEXA DATE: 06/22/2022 3:04 PM CLINICAL HISTORY: Postmenopausal. Prior stated calcium replacement therapy. 71-year-old female with menopause at age 48. FINDINGS: LUMBAR SPINE L2-L4: BMD: 0.751 g/sq cm T-SCORE: -3.0 WHO CLASSIFICATION: Moderate osteoporosis FRACTURE RISK: Moderately high LEFT FEMORAL NECK: BMD: 0.580 T-SCORE: -2.4 WHO CLASSIFICATION: Very osteopenic FRACTURE RISK: Low COMPARISON STUDY: 06/18/2020. LUMBAR SPINE L2-L4: BMD: 0.688 T-SCORE: -3.6 WHO CLASSIFICATION: Severe osteoporosis FRACTURE RISK: High LEFT FEMORAL NECK: BMD: 0.531 T-SCORE: -2.9 WHO CLASSIFICATION: Mild osteoporosis FRACTURE RISK: Moderate Recommendation. Continuation of calcium replacement therapy with repeat imaging in one year Ordered By: CATRACHO CASE Interpreted By: Vira Brock, 06/22/2022 3:21 PM Procedure Note Royce Brock MD - 06/22/2022 IMAGING STUDIES: BONE DENSITY/DEXA DATE: 06/22/2022 3:04 PM CLINICAL HISTORY: Postmenopausal. Prior stated calcium replacementtherapy. 71-year-old female with menopause at age 48. FINDINGS: LUMBAR SPINE L2-L4: BMD: 0.751 g/sq cm T-SCORE: -3.0 WHO CLASSIFICATION: Moderate osteoporosis FRACTURE RISK: Moderately high LEFT FEMORAL NECK: BMD: 0.580 T-SCORE: -2.4 WHO CLASSIFICATION: Very osteopenic FRACTURE RISK: Low COMPARISON STUDY: 06/18/2020. LUMBAR SPINE L2-L4: BMD: 0.688 T-SCORE: -3.6 WHO CLASSIFICATION: Severe osteoporosis FRACTURE RISK: High LEFT FEMORAL NECK: BMD: 0.531 T-SCORE: -2.9 WHO CLASSIFICATION: Mild osteoporosis FRACTURE RISK: Moderate Recommendation. Continuation of calcium replacement therapy with repeatimaging in one year Ordered By: CATRACHO CASE Interpreted By: Vira Brock, 06/22/2022 3:21 PM Catracho Case MD DEXA Final Result from Last 3 Months or Most Recently Relevant to Health Maintenance Insurance MED [facility] MEDICARE Care Teams Park Recreation Manager Relationship Specialty Start Date End Date Christie Stapleton PA-C PCP - General NURSE PRACTITIONER 12/06/18
--- OUTSIDE RECORDS SUMMARY | 2025-04-06 15:06 | XMS_ITS | Encounter Summary ---
Author Organization [facility] Address [facility] [place] [address] Care Team Providers Care Motorcycle Subassembler Name Role Phone Christie Stapleton PA-C Primary Care Provider +1- [phone] Encounter Details Date Type Department Care Team (Late st Contact Info) Description 05/09/2024 JK-Group Message Enc [facility] Multispecialty Care - [facility] [address] [facility], [address] [place] [id number] Jaret Guerra MD [address] [place] [address] Neck Pain Social History Tobacco Use Types Packs/Day Years [...] Sex Assigned at Female 09/12/2024 8:00 AM INSTALLATION TECH Legal Sex Female 6:03 PM CDT Gender Identity Female 10/30/2021 3:21 PM INSTALLATION TECH Sexual Orientation Not on file Occupation Industry Job Start Date Job End Date 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
--- OUTSIDE RECORDS SUMMARY | 2025-04-06 15:06 | XMS_ITS | Encounter Summary ---
Author Organization [facility] Address [address] [facility] [place] [address] Care Team Providers Care Derrick Car Operator Name Role Phone Christie Stapleton Primary Care Provider Encounter Details Date Type Department Care Team (Late st Contact Info) Description 01/09/2025 [facility] Lab [address] [place] [address] Janelle Bojorquez DO [address] [facility] 3 [place] [address] Social History Tobacco Use Types Packs/Day Years [...] Visit [facility] - Endocrinology [address] [place] [address] Tawnya Mclean MD [address] [place] [address] 2L [place] [address] 07/29/2025 1:00 PM HOT DIMPLING MACHINE OPERATOR Office Visit [facility] - Endocrinology [address] [place] [address], [place] [address] Yousuf Irwin MD [address] [place] [address] 2L [place] [address] documented as of this encounter Procedures Procedure Name Priority Date/Time Associated Diagnosis Comments DERMATOPATHOLOGY Routine 01/09/2025 8:44 AM CDT documented in this encounter Results * DERMATOPATHOLOGY (01/09/2025 8:44 AM CDT) Case Report Dermatopathology Report Case: [id number] Authorizing Provider: Janelle Bojorquez DO Collected: 01/09/2025 08:44 AM Ordering Location: [facility] Physician [facility] - Received: 01/10/2025 06:42 AM DermPath Lab Pathologist: Chelsea Tejada MD Specimen: Skin, left upper back 12:25 PM CDT DERMATOPATHOLOGY LABORATORY Final Diagnosis Specimen A. SKIN, left upper back: DERMAL SCAR RESIDUAL MELANOCYTIC PROLIFERATION NOT IDENTIFIED (L90.5) 12:25 PM CDT DERMATOPATHOLOGY LABORATORY at 1225 CDT Clinical History Bx Proven Junctional Jyotsna prolif.Check margin.See prior biopsy. 12:25 PM CDT DERMATOPATHOLOGY LABORATORY Gross Description Specimen A: Received is one formalin filled container labeled with the patient's name and designated left upper back. The specimen consists of a non-oriented ellipse of skin measuring 89g88l1 mm. The epidermal surface is unremarkable. The margin is inked green. The 12 o'clock and 6 o'clock tips are submitted in cassette 1. The remainder of the ellipse is serially sectioned and submitted in cassette 2-3. Jar 0. 12:25 PM CDT DERMATOPATHOLOGY LABORATORY Microscopic Description Specimen A. SKIN, left upper back: There are fibroblasts and collagen bundles oriented parallel to the skin surface. There are elongated blood vessels, some of which are oriented perpendicular to the skin surface. No residual melanocytic proliferation is identified. 12:25 PM CDT DERMATOPATHOLOGY LABORATORY Disclaimer An external and internal positive and negative controls are appropriate for the histochemical, immunohistochemical and immunofluorescence stain(s) in this case (if any), except where stated explicitly. The performance characteristics of the stain(s) cited in this report were developed and its performance characteristic determined by the Dermatopathology Laboratory at [facility], directed by Dr. Joanie Merida. These tests need not be, and therefore are not, approved by the [place] Food and Drug Administration. The tests are used for clinical purposes. Billing Codes Specimen Charges Stain Charges 00953 1 5 12:25 PM CDT DERMATOPATHOLOGY LABORATORY Embedded Images 12:25 PM CDT DERMATOPATHOLOGY LABORATORY Pathology/Cytolo gy TISSUE SPECIMEN FROM SKIN / Unknown 01/09/2025 8:44 AM CDT 01/10/2025 6:42 AM CDT us Janelle Bojorquez DO LAB - PATHOLOGY/CYTOLOGY ORDERABLES Final Result DERMATOPATHOLOGY LABORATORY [facility] - Department of Dermatology [address], [address] [phone] documented in this encounter Visit Diagnoses Not on filedocumented in this encounter Care Teams Derrick Car Operator Relationship Specialty Start Date End Date Christie Stapleton PA [address] [place] [address] PCP - General Physician Sleeve Setter 10/25/24 documented as of this encounter
--- OUTSIDE RECORDS SUMMARY | 2025-04-06 15:06 | XMS_ITS | Clinical Summary ---
Author Organization [facility] Address [address] [place] [address] Care Team Providers Care Chicken Dresser Name Role Phone Christie Stapleton Primary Care Provider Source Comments [facility],non-owned Affiliates and Associated Physician Practices is amultiple site organization consisting of ambulatory clinics and hospital sitesin [place], [place], [place] and [place]. This disclosure is being madepursuant to the Care Everywhere program and may not contain all information available regarding this patient. Last updated 18.[facility] [employer] Allergies No known active allergies Medications * Be aware that medications may not be up to date on this document. Alwaysverify current medications with the patient. Ascorbic Acid 1000 MG Take 1 (one) tablet by mouth once daily Active coenzyme Q10 100 MG capsule Activ e gabapentin (Neurontin) 300 MG capsule Take 2 (two) capsules by mouth 2 times daily 03/26/2024 Active Multiple Vitamins-Minera ls (Multi Vitamin/Mineral s) TABS Take 1 (one) tablet by mouth once daily Active TURMERIC PO Take by mouth once daily Active propranolol ER 24hr (Inderal LA) 60 MG capsule Take 1 (one) capsule by mouth once daily 10/01/2024 Active Active Problems Problem Noted Date Diagnosed Date Hypothyroidism, acquired 10/25/2024 Thyroid nodule 07/12/2024 Multinodular thyroid 07/12/2024 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 Essential tremor 11/17/2022 Senile osteoporosis 06/12/2021 Mixed hyperlipidemia 05/15/2021 Facet arthropathy, cervical 03/14/2019 Cervical radiculopathy 10/17/2018 Essential (primary) hypertension Cervical spondylosis Encounters Date Type Department Care Team Description 01/09/2025 Lab Requisition [facility] - DermPath Lab [address] [place] [address] Janelle Bojorquez DO from Last 3 Months Family History Medical History Relation Name Comments Leukemia Father Parkinson's Disease Father Cancer - Breast Sister Diabetes - Type 1 Neg Hx Diabetes - Type 2 Neg Hx Thyroid Disease Neg Hx Relation Name Status Comments Father Mother Sister Social History Tobacco Use Types Packs/Day Years Used Date Smoking Tobacco: Never Smokeless Tobacco: Never Tobacco Cessation:Counseling Given: No Alcohol Use Standard Drinks/Week Comments Not Currently 0 (1 standard drink = 0.6 oz pur e alcohol) Comments Unknown Sex and Gender Information Value Date Recorded Sex Assigned at Not on file Legal Sex Female 9:16 AM CDT Gender Identity Female 05/28/2024 9:16 AM CDT Sexual Orientation Not on file Last Filed Vital Signs Vital Sign Reading Time Taken Comments Blood Pressure 126/78 10/25/2024 1:30 PM PRISON GUARD Pulse 63 10/25/2024 1:30 PM PRISON GUARD Temperature - - Respiratory Rate - - Oxygen Saturation 96% 10/25/2024 1:30 PM PRISON GUARD Inhaled Oxygen Concentration - - Weight 80.3 kg (177 lb) 10/25/2024 1:30 PM PRISON GUARD Height - - Body Mass Index - - Plan of Treatment Upcoming Encounters Date Type Department Care Team (Late st Contact Info) Description 04/25/2025 1:40 PM CDT Office Visit [facility] - Endocrinology [address] [place] [address] Tawnya Mclean MD [address] [place] [address] [place] [address] 07/29/2025 1:00 PM PRISON GUARD Office Visit [facility] - Endocrinology [facility] [facility], [place] [address] Yousuf Irwin MD [address] [place] [address] [place] [address] Health Maintenance Due Date Last Done Comments HEPATITIS C SCREENING 07/24/1966 DTAP/TDAP/TD VACCINES (1 - Tdap) 1967 PNEUMOCOCCAL VACCINE 50+ (1 of 1 - PCV) 1998 ZOSTER VACCINE (1 of 2) 1998 Respiratory Syncytial Virus (RSV) Vaccine Pt: or over 60 yrs (1 - 1-dose 75+ series) 2023 COVID-19 VACCINE (3 - 2023-2 5 season) 2024 11/07/2020, 10/10/2020 DEPRESSION SCREENING 08/29/2024 MEDICARE AWV CALENDAR YEAR 2024 INFLUENZA VACCINE (#1) 2025 BONE DENSITY TESTING Completed 06/22/2022, 06/18/2020 HEPATITIS B VACCINE Aged Out No longe r eligible based on patient's age to complete this topic HIB VACCINE Aged Out No longer eligi ble based on patient's age to complete this topic HPV VACCINE Aged Out No longer eligi ble based on patient's age to complete this topic MENINGOCOCCAL (Group B) VACCINE SHARED DECISION-MAKING Aged Out No longer eligible based on patient's age to complete this topic MENINGOCOCCAL GROUPS A/C/Y/W VACCINE Aged Out No longer eligible b ased on patient's age to complete this topic Procedures Procedure Name Priority Date/Time Associated Diagnosis Comments DERMATOPATHOLOGY Routine 01/09/2025 8:44 AM CDT from Last 3 Months Results * DERMATOPATHOLOGY (01/09/2025 8:44 AM CDT) Case Report Dermatopathology Report Case: [id number] Authorizing Provider: Janelle Bojorquez DO Collected: 01/09/2025 08:44 AM Ordering Location: [facility] - Received: 01/10/2025 06:42 AM DermPath Lab [...] of a non-oriented ellipse of skin measuring 38x19s9 mm. The epidermal surface is unremarkable. The [...] characteristic determined by the Dermatopathology Laboratory at [facility], directed by Dr. Joanie Merida. These tests need not be, and therefore are not, approved by the [place] Food and Drug Administration. The tests are used for clinical purposes. Billing Codes Specimen Charges Stain Charges 75796 1 12:25 PM CDT DERMATOPATHOLOGY LABORATORY Embedded Images 12:25 PM CDT DERMATOPATHOLOGY LABORATORY Pathology/Cytolo gy TISSUE SPECIMEN FROM SKIN / Unknown 01/09/2025 8:44 AM CDT 01/10/2025 6:42 AM CDT us Janelle Bojorquez DO LAB - PATHOLOGY/CYTOLOGY ORDERABLES Final Result DERMATOPATHOLOGY LABORATORY [facility] - Department of Dermatology [place] [address] [facility], 3rd [place] [address], [facility] [phone] from Last [facility] [address] MANAGED MEDICARE ADV Care Teams Chicken Dresser Relationship Specialty Start Date End Date Christie Stapleton PA [address] [place] [address] PCP - General Physician Monitor Car Operator 10/25/24
--- OUTSIDE RECORDS SUMMARY | 2025-04-06 15:06 | XMS_ITS | Encounter Summary ---
Author Organization [facility] Address [address] [facility] [place] [address] Care Team Providers Care Cement Sprayer Helper Name Role Phone Christie Stapleton Primary Care Provider Encounter Details Date Type Department Care Team (Late st Contact Info) Description 12/12/2024 [facility] [address] [place] [address] Janelle Bojorquez DO [address] [facility] 3 [place] [address] Social History Tobacco Use Types Packs/Day Years [...] Visit [facility] - Endocrinology [address] [place] [address] Tawnya Mclean MD [address] [place] [address] 2L [place] [address] 07/29/2025 1:00 PM DIVISION FIELD INSPECTOR Office Visit [facility] - Endocrinology [address] [place] [address], [place] [address] Yousuf Irwin MD [address] [place] [address] 2[place] [address] Scheduled Orders Name Type Priority Associated Diagnoses Orde r Schedule DERMATOPATHOLOGY Pathology Cytology Routine Ordered: 12/12/2024 documented as of this encounter Visit Diagnoses Not on filedocumented in this encounter Care Teams Cement Sprayer Helper Relationship Specialty Start Date End Date Christie Stapleton PA [address] [place] [address] PCP - General Physician Delivery Director 10/25/24 documented as of this encounter
--- OUTSIDE RECORDS SUMMARY | 2025-04-06 15:06 | XMS_ITS | Encounter Summary ---
Author Organization [facility] Address [facility] [place] [address] Care Team Providers Care Pet Handler Name Role Phone Christie Stapleton PA-C Primary Care Provider +1- [phone] Encounter Details Date Type Department Care Team (Late st Contact Info) Description 05/25/2023 Therapy Plan [facility] One Day Services [address] [place], [place] [id number] Christie Stapleton PA-C [address] [place] [address] Social History Tobacco Use Types [...] Date Recorded Patient Health Questionnaire-2 Score 0 03/02/2023 Comments No Sex and Gender Information Value Date Recorded Sex Assigned at Female 09/12/2024 8:00 AM INFORMATION CONSULTANT Legal Sex Female 6:03 PM CDT Gender Identity Female 10/30/2021 3:21 PM INFORMATION CONSULTANT Sexual Orientation Not on file Occupation Industry Job Start Date Job End Date [place] at [employer] Not on file Not on file Not on file documented as of this encounter Plan of Treatment Not on file documented as of this encounter Visit Diagnoses Diagnosis Senile osteoporosis- Primary documented in this encounter Additional Health Concerns Assessment Noted Time PHQ-9 Depression Total Score: 0 10/06/19 22 10:18 AM INFORMATION CONSULTANT documented as of this encounter Care Teams Pet Handler Relationship Specialty Start Date End Date Christie Stapleton PA-C PCP - General NURSE PRACTITIONER 12/06/18 documented as of this encounter
--- OUTSIDE RECORDS SUMMARY | 2025-04-06 15:06 | XMS_ITS | Encounter Summary ---
Author Organization [facility] Address [facility] [place] [address] Care Team Providers Care Hyster Machine Operator Name Role Phone Christie Stapleton PA-C Primary Care Provider +1- [phone] Encounter Details Date Type Department Care Team (Late st Contact Info) Description 08/01/2023 Therapy Plan [facility] One Day Services [address] [place], [place] [id number] Christie Stapleton PA-C [address] [place] [address] Social History Tobacco Use Types [...] Sex Assigned at Female 09/12/2024 8:00 AM ON SITE WASTEWATER SYSTEMS TECHNICIAN Legal Sex Female 6:03 PM CDT Gender Identity Female 10/30/2021 3:21 PM ON SITE WASTEWATER SYSTEMS TECHNICIAN Sexual Orientation Not on file Occupation Industry Job Start Date Job End Date [place] [employer] Not on file Not on file Not on file documented as of this encounter Plan of Treatment Not on file documented as of this encounter Visit Diagnoses Diagnosis Senile osteoporosis- Primary Spasmodic torticollis Essential tremor Essential and other specified forms of tremor documented in this encounter Additional Health Concerns Assessment Noted Time PHQ-9 Depression Total Score: 0 10/06/19 22 10:18 AM ON SITE WASTEWATER SYSTEMS TECHNICIAN documented as of this encounter Care Teams Hyster Machine Operator Relationship Specialty Start Date End Date Christie Stapleton PA-C PCP - General NURSE PRACTITIONER 12/06/18 documented as of this encounter
--- OUTSIDE RECORDS SUMMARY | 2025-04-06 15:06 | XMS_ITS | Encounter Summary ---
Author Organization [facility] Address [facility] [place] [address] Care Team Providers Care Master Yacht Name Role Phone Christie Stapleton PA-C Primary Care Provider +1- [phone] Encounter Details Date Type Department Care Team (Latest Contact Info) Description 08/17/2024 [facility] Message [facility] [place] [address] [id number] Ymagislyubov, [facility] Provider PAIN CLINIC REFERRAL Social History Tobacco Use Types Packs/Day Years [...] Sex Assigned at Female 09/12/2024 8:00 AM FILTER TENDER JELLY Legal Sex Female 6:03 PM CDT Gender Identity Female 10/30/2021 3:21 PM FILTER TENDER JELLY Sexual Orientation Not on file Occupation Industry Job Start Date Job End Date [place] at [employer] Not on file Not on file Not on file documented as of this encounter Plan of Treatment Not on file documented as of this encounter Visit Diagnoses Not on filedocumented in this encounter Additional Health Concerns Assessment Noted Time PHQ-9 Depression Total Score: 0 10/06/19 22 10:18 AM FILTER TENDER JELLY documented as of this encounter Care Teams Master Yacht Relationship Specialty Start Date End Date Christie Stapleton PA-C PCP - General NURSE PRACTITIONER 12/06/18 documented as of this encounter
--- OUTSIDE RECORDS SUMMARY | 2025-04-06 15:06 | XMS_ITS | Encounter Summary ---
Author Organization [facility] Address [address] [facility] [place] [address] Care Team Providers Care Business Process Architect Name Role Phone Jaret Guerra MD Primary Care Provider +1 -[phone] Christie Stapleton Primary Care Provider [phone] Reason for Visit * Reason Onset Date Comments Request Lab Order 10/03/202410/03-Reschedule mich Irwin's 07/18S appt to 07/29-Please mail the TSH lab order to the residence & call to answer questions in reference to that order. Patient is going to an outside lab. Thank you Encounter Details Date Type Department Care Team (Late st Contact Info) Description 10/03/2024 Telephone [facility] - Centralized Scheduling [address] [place] [address] Yousuf Irwin MD [address] [place] [address] Request Lab Order (2-Rescheduled Dc's 07/18 appt to 07/29-Please mail the TSH lab order to the residence & call to answer questions in reference to that order. Patient is going to an outside lab. Thank you/) Social History Tobacco Use Types Packs/Day Years [...] Description 04/25/2025 1:40 PM CDT Office Visit [facility] - Endocrinology [address] [place] [address], [place] [address] Tawnya Mclean MD [address] [place] [address] 2[place] [address] 07/29/2025 1:00 PM PLASTICS FABRICATOR OR WELDER Office Visit [facility] - Endocrinology [address] [place] [address], [place] [address] Yousuf Irwin MD [address] [place] [address] 2[address] [place] [address] documented as of this encounter Visit Diagnoses Not on filedocumented in this encounter Care Teams Business Process Architect Relationship Specialty Start Date End Date Jaret Guerra MD 3 [place] [address] PCP - General Neurology 06/06/24 10/24/24 Christie Stapleton PA [address] [place] [address] PCP - General Physician Recruitment Specialist 10/25/24 documented as of this encounter
--- OUTSIDE RECORDS SUMMARY | 2025-04-06 15:06 | XMS_ITS | Encounter Summary ---
Author Organization [facility] Address [address] [facility] [place] [address] Care Team Providers Care Cultured Marble Products Maker Name Role Phone Jaret Guerra MD Primary Care Provider [phone] Christie Stapleton Primary Care Provider Encounter Details Date Type Department Care Team (Late st Contact Info) Description 06/06/2024 Telephone [facility] - Endocrinology [address] [place] [address], [facility] [place] [address] Yousuf Irwin MD [address] [place] [address] [place] [address] Social History Tobacco Use Types Packs/Day Years Used Date Smoking Tobacco: Never Assessed Comments Unknown Sex and Gender Information Value Date Recorded Sex Assigned at Not on file Legal Sex Female 9:16 AM CDT Gender Identity Female 05/28/2024 9:16 AM CDT Sexual Orientation Not on file documented as of this encounter Miscellaneous Notes * Telephone Encounter - Kanika Palma - 06/06/2024 2:52 PM CDT Current Provider: Dr. Yousuf Irwin Reason for Call: Mrs. Cami Juarez has referral for Dr. Irwin for nodule: Diagnosis E04.1 (ICD-10-CM) - Thyroid nodule She did state referring doctor wanted her to get TUS. Review, thanks. Patient Call Back Number: [phone] documented in this encounter Plan of Treatment Upcoming Encounters Date Type Department Care Team (Late st Contact Info) Description 04/25/2025 1:40 PM CDT [facility] End[facility] [address] [place] [address], [place] [address] Tawnya Mclean MD [address] [place] [address] 2[place] [address] 07/29/2025 1:00 PM ROLL UP GUIDER OPERATOR Office Visit [facility] - [address], [place] [address] Yousuf Irwin MD [address] [place] [address] 2L [place] [address] documented as of this encounter Visit Diagnoses Not on filedocumented in this encounter Care Teams Cultured Marble Products Maker Relationship Specialty Start Date End Date Jaret Guerra MD 3 [place] [address] PCP - General Neurology 06/06/24 10/24/24 Christie Stapleton PA [address] [place] [address] PCP - General Physician Wood Heel Cementer 10/25/24 documented as of this encounter
--- OUTSIDE RECORDS SUMMARY | 2025-04-06 15:06 | XMS_ITS | Encounter Summary ---
Author Organization [facility] Address [facility] [place] [address] Care Team Providers Care Network Relay Tester Name Role Phone Christie Stapleton PA-C Primary Care Provider +1- [phone] Encounter Details Date Type Department Care Team (Late st Contact Info) Description 01/13/2023 Therapy Plan [facility] One Day Services [address] [place], [place] [id number] [place] [address] [address] Social History Tobacco Use Types Packs/Day Years [...] Sex Assigned at Female 09/12/2024 8:00 AM COLD FOOD PACKER Legal Sex Female 6:03 PM CDT Gender Identity Female 10/30/2021 3:21 PM COLD FOOD PACKER Sexual Orientation Not on file Occupation Industry Job Start Date Job End Date [place] [employer] Not on file Not on file [...] Total Score: 0 10/06/19 22 10:18 AM COLD FOOD PACKER documented as of this encounter Care Teams Network Relay Tester Relationship Specialty Start Date End Date Christie Stapleton PA-C PCP - General NURSE PRACTITIONER 12/06/18 documented as of this encounter
--- NOTE | 2025-04-06 15:14 | ED_ITS ---
HPI - Extremity Problem General Chief complaint: Extremity Injury, Lower Stated complaint: Lt foot pain Time Seen by Provider: 04/06/25 15:15 Source: patient Mode of arrival: ambulatory Limitations: no limitations History of Present Illness HPI Narrative: 74 y/o female presented for c/o left foot pain and swelling after injury today. States she dropped an iPad onto the foot. Took Tylenol and attempted to apply ic e but could not tolerate it. Denies numbness, tingling or weakness. Related Data Home Medications ?Medication ?Instructions ?Recorded ?Confirmed ?Last Taken ?Type alpha lipoic acid 600 mg capsule 600 mg PO DAILY 06/08/22 04/06/25 Unknown History ascorbate calcium (vitamin C) 500 500 mg PO DAILY 06/08/22 04/06/25 Unknown History mg tablet coenzyme Q10 100 mg capsule 200 mg PO DAILY 06/08/22 04/06/25 Unknown History (CoQ-10) tjzwehbumlpi-drtdireg-ucfqeji-folic 1 tablet PO DAILY 06/08/22 04/06/25 Unknown History acid 400 mcg-vit K1 20 mcg tablet (One-A-Day Women's 50 Plus) acetaminophen 500 mg tablet 500 mg PO Q6H PRN Pain 06/27/24 04/06/25 Unknown History Allergies Allergy/AdvReac Type Severity Reaction Status Date / Time No Known Allergies Allergy Verified 04/06/25 15:12 Review of Systems Review of Systems: CONSTITUTIONAL: Denies body aches, fever, chills CARDIOVASCULAR: Denies chest pain, palpitations, or edema. RESPIRATORY: Denies cough or dyspnea. SKIN: Denies rash, itching, or wounds. MUSCULOSKELETAL: Reports left foot pain NEUROLOGIC: Denies headache, numbness, tingling, or weakness. All systems reviewed & are unremarkable except as noted in HPI and below PMFSH Past Medical History Medical History Thyroid nodule COVID-19 Surgical History Surgical History History of cholecystectomy 2009 History of cataract surgery L eye 02/01/22 R eye 2016 Social History Social History Social History: 12/22/24 patient declined SDOH Smoking status: Never smoker Second hand tobacco smoke exposure: No Alcohol intake: never Substance use: never Substance use type: does not use Do You Feel Safe in your Home?: Yes Lack of Transportation: No Lack of Food: Never True Current Housing: I Have Housing Concerned About Future Housing: No Difficulty Paying Gas/Electric Bills: No Difficulty Paying for Meds: No Currently Unemployed: No Education: High School Diploma/GED Difficulty w/ Childcare or Family Care: No Living arrangements: with family Occupation/Education: retired Gender identity (if verbalized by the patient): Female Sexual Orientation (if Verbalized by the Patient): Straight or Heterosexual Spiritual care concerns: No Comments At time of signature, I have reviewed and agree with nursing past medical, surgical, social and family history unless otherwise noted. Please see nursing chart for further information. There is no relevant family history pertinent to the presenting complaint Exam Narrative: GENERAL: Well-appearing, and in no acute distress. CHEST: Speaks in full sentences. No respiratory distress. HEART: Regular rate and rhythm. Normal and equal peripheral pulses. EXTREMITIES: Left foot has normal strength and sensation, decreased range of motion to toes due to endorses pain with movement. Mild swelling between the 1st and 2nd metatarsals, tender to palpation. No ecchymosis, No open wounds, or obvious deformity; pulse palpable and equal bilaterally, skin warm, dry, pink. Capillary refill less than 3 seconds. SKIN: Warm, dry NEURO: Alert and oriented x3. PSYCH: Normal mood and affect Course Course Emergency Course: Patient is aware of diagnosis, understands and agrees to treatment plan. Anticipatory guidance given. Patient agrees to follow-up as directed and is aware of reasons to seek care at the emergency department. Portions of this record may have been created with voice recognition software Level of Care: Express Care Visit Vital Signs Vital signs: Vital Signs Temperature 98.0 F 04/06/25 15:15 Pulse Rate 61 04/06/25 15:15 Respiratory Rate 16 04/06/25 15:15 Blood Pressure 154/73 H 04/06/25 15:15 Pulse Oximetry 99 04/06/25 15:15 Oxygen Delivery Room Air 04/06/25 15:15 Temperature 98.0 F 04/06/25 15:15 Pulse Rate 61 04/06/25 15:15 Respiratory Rate 16 04/06/25 15:15 Blood Pressure 154/73 H 04/06/25 15:15 Pulse Oximetry 99 04/06/25 15:15 Oxygen Delivery Room Air 04/06/25 15:15 Reviewed MDM - Extremity (Nontraumatic) MDM Narrative Medical decision making narrative: Discussed physical exam findings and x-ray. Mechanism of injury is less likely traumatic subluxation. Tevin wrap and postop shoe provided, advised follow-up with mergers and acquisitions manager. Advised supportive measures and signs/symptoms to go to the ER. Pt is appropriate for outpt treatment and f/u. Differential Diagnosis Differential diagnosis: Likely other (Foot fracture, foot contusion) Imaging Data Radiologist's impression: Patient: Cami Jaramillo : 1950 MR#: [id number] Age: 74 Acct:[id number] Loc: [facility] ADM Date: 04/06/25Attending Dr: EXAM: XR foot LT min 3V DATE: 04/06/2025 15:31 HISTORY: dropped ipad on foot on 1st MTP joint area . COMPARISON: None available. FINDINGS: Normal mineralization. No fracture or dislocation. No lytic or blastic lesion. 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 Widening of the first MTP joint and the lateral view. Mild Achilles and moderate plantar enthesopathy. Mild scattered degenerative changes in the toes and midfoot. No erosion or periosteal change. Soft tissues within normal limits. IMPRESSION: First MTP joint widening, seen only in the lateral view, may be secondary to degenerative change or traumatic subluxation. Discharge Plan Discharge Clinical Impression: Contusion of foot Patient Disposition: Home Condition: Stable Instructions: Antibiotic Form, Foot Contusion (ED) Additional Instructions: Rest and elevate the left leg; bear weight as tolerated Apply ice 15-20 minute intervals several times a day Keep it wrapped with TEVIN to reduce swelling Motrin alternate with Tylenol every 8 hours as needed Follow up with your primary care provider as needed Dr Mario - mergers and acquisitions manager [id number], [place] [address] Go to the ER for any worsening symptoms or concerns Patient Language: Croatian Prescriptions: No Action Prolia 60 mg/mL syringe 60 mg subcut [id number] Qty: 1 1RF One-A-Day Women's 50 Plus 400-20 mcg tablet 1 tablet PO DAILY coenzyme Q10 [CoQ-10] 100 mg capsule 200 mg PO DAILY alpha lipoic acid 600 mg capsule 600 mg PO DAILY ascorbate calcium (vitamin C) 500 mg tablet 500 mg PO DAILY gabapentin 400 mg capsule 1,200 mg PO BID Qty: 360 0RF propranolol 60 mg capsule,extended release 24 hr 60 mg PO DAILY Qty: 90 0RF acetaminophen 500 mg Tablet 500 mg PO Q6H PRN (Reason: Pain) Patient Comments: .. Follow-up/Referrals: Christie Stapleton PA-C [Primary Care Provider] - Time of Disposition: 16:10
[2025-04-06 15:15] VITALS: BP 154/73; PULSE 61; RESP 16; TEMP 36.7; O2SAT 99
== END 2025-04-06 16:15 | disposition home or self-care (01) ==
PROVIDERS: Emergency Provider Nurse Practitioner Family; PCP Physician Assistant Medical
DX: S90.32XA Contusion of left foot, initial encounter (principal); W20.8XXA Other cause of strike by thrown, projected or falling object, initial encounter
CPT/HCPCS: 73630; 99213; G0463